=== PATIENT | male | born 1955 | race Caucasian/White ===

== ENCOUNTER 2020-06-27 14:52 | Emergency (ER) | payer OTHER, SELFPAY ==
[2020-06-27 14:59] VITALS: BP 163/76; PULSE 76; RESP 24; TEMP 37.1; O2SAT 95
[2020-06-27 15:32] LABS: Add Manual Diff / Slide Review NO; Basophils Absolute Auto 0 /uL (0-100); Basophils Percent Auto 0.8 % (0-2); Eosinophils Absolute Auto 300 /uL (0-450); Hematocrit 40.2 % (41-53); Hemoglobin 13.4 g/dL (13.5-17.5); Lymphocytes Absolute Auto 1500 /uL (1100-4500); Lymphocytes Percent Auto 25.2 % (25-40); Mean Corpuscular HGB Conc 33.3 % (30-36); Mean Corpuscular Hemoglobin 30.3 PG (26-34); Monocytes Absolute Auto 700 /uL (0-900); Monocytes Percent Auto 10.6 % (3-14); Neutrophils Absolute Auto 3600 /uL (1500-7000); Neutrophils Percent Auto 58.4 % (50-75); Platelet Count 151 X10^3/uL (150-400); Red Blood Cell Count 4.41 X10^6/uL (4.5-5.9); Red Cell Distribution Width 13.5 % (11.6-14.8); White Blood Cell Count 6.1 X10^3/uL (4.5-11.0)
[2020-06-27 15:37] LABS: Prothrombin Time 11.3 SECONDS (10.1-12.7)
[2020-06-27 15:40] LABS: PTT Partial Thromboplastin Tim 34 SECONDS (26.4-36.2)
[2020-06-27 15:42] LABS: Alanine Aminotransferase 23 IU/L (<50); Albumin 4.2 g/dL (3.5-5.0); Albumin Globulin Ratio 1.4 (1.0-2.8); Alkaline Phosphatase 71 U/L (38-126); Aspartate Aminotransferase 30 IU/L (17-59); BUN Creatinine Ratio 13.5 (6-22); Bilirubin Total 0.8 mg/dL (0.2-1.3); Blood Urea Nitrogen 17 mg/dL (9-20); Calcium 9.4 mg/dL (8.4-10.2); Carbon Dioxide 27 mmol/L (22-32); Chloride 108 mmol/L (98-107); Creatine Kinase 57 U/L (55-170); Estimated Glomerular Filt Rate 57.1 mL/min (>60); Globulin 3.1 g/dL (1.7-4.1); Glucose 108 mg/dL (80-110); HEMOLYSIS 21 (0-50); Lactate (Lactic Acid) 1.3 mmol/L (0.7-2.1); Potassium 3.9 mmol/L (3.4-5.1); Sodium 142 mmol/L (137-145); Total Protein 7.3 g/dL (6.3-8.2)
[2020-06-27 15:48] LABS: COVID19 -Nasal RAPID Negative (Negative)
--- NOTE | 2020-06-27 15:51 | DI.RAD.S_ITS ---
PROCEDURE: XR CHEST 2V INDICATIONS: dyspnea, hx of copd TECHNIQUE: 2 views of the chest were acquired. COMPARISON: None. FINDINGS: Surgical changes and devices: None. Lungs and pleura: Lungs are clear. Emphysematous change. No pleural effusions or pneumothorax. Mediastinum: Mediastinal contours are normal. Heart size is normal. Bones and chest wall: No suspicious bony abnormalities. Soft tissues appear unremarkable. IMPRESSION: COPD. No evidence acute pulmonary process. Dictated by: Juan Galvez M.D. on 06/27/2020 at 16:33 Approved by: Juan Galvez M.D. on 06/27/2020 at 16:35
[2020-06-27 15:54] LABS: NT-proBNP (BNP-Adult 18+) 386 pg/mL (<125); Troponin I < 0.012 ng/mL (0.01-0.034)
[2020-06-27 15:57] LABS: Procalcitonin < 0.05 ng/mL (<0.5)
[2020-06-27] MEDS: SODIUM CHLORIDE 0.9% 1,000 ML 125 ML IV (16:14)
[2020-06-27] MEDS: methylPREDNISolone 125 MG/2 ML VIAL IV (16:14)
[2020-06-27] MEDS: ALBUTEROL 2.5 MG/3 ML NEB (ADULT) 5 MG INH (16:17)
[2020-06-27 16:20] VITALS: PULSE 64; RESP 18; O2SAT 95
--- NOTE | 2020-06-27 17:24 | ED.SOB ---
HPI - SOB/Dyspnea <NATALIE Kaur - Last Filed: 06/28/20 00:04> General Chief Complaint: Shortness of Breath/Dyspnea Stated Complaint: SOB Time Seen by Provider: 06/27/20 15:09 Source: patient Mode of arrival: Ambulatory Limitations: no limitations History of Present Illness HPI Narrative: This is a 65-year-old male, history of former smoker, with medical history significant for COPD, CHF, hypertension presents to ED with chief complain of trouble breathing and dizziness. Patient denies chest pain, fever, chills, weight gain or leg swelling, vomiting but some nausea. Patient reports he started to have productive cough. Patient reports he had quit smoking 3 years ago had smoked 60 packs for 50 years. He was to use Proventil, Stilto, and Alvesco but he had stopped taking Alvesco about 2 months ago due to having some chest pain and blurred vision and puffy eye lids without consulting the physician. He reports after he had stopped using Alvesco, the symptoms improved. However, with his increase in short of breath he restarted Alvesco for 4 days last week then stopped again due to recurring side effects. Patient reports decreased p.o. fluid intake and feels very dehydrated. Patient also stopped using diuretics after reading many side effects including increasing phlegm and difficulty breathing. Patient is a [facility] patient and has an appointment with new field organizer next week Saturday. Related Data Previous Rx's Medication Instructions Recorded prednisone 50 mg PO DAILY 5 Days #5 tab 06/27/20 Allergies Allergy/AdvReac Type Severity Reaction Status Date / Time No Known Drug Allergies Allergy Verified 06/27/20 15:01 Review of Systems <NATALIE Kaur - Last Filed: 06/28/20 00:04> Review of Systems Narrative: General: Denies fever, chills, fatigue, malaise, sweats. HEENT: Denies sinus pain, ear pain, sore throat, difficulty swallowing, dizziness. Respiratory: See HPI Cardiovascular: Denies chest pain, palpitations, orthopnea, edema. Gastrointestinal: Denies (+) nausea, vomiting, abdominal pain, diarrhea, constipation, melena. : Denies dysuria, frequency, incontinence, hematuria, urinary retention. Musculoskeletal: Denies weakness, joint pain or bony pain. Skin: Denies rash, skin lesions, or other. Neurologic: Denies weakness, headache, numbness, change in speech, confusion, seizures, incoordination. Psychiatric: No concerning psychosocial issues. 12-point review of systems is negative except for those stated above. Exam <Daniel NATALIE Owens - Last Filed: 06/28/20 00:04> Narrative Exam Narrative: GEN: Alert, oriented x 3, thin appearing who appears to be fatigue. Head: Normal cephalic, atraumatic. No scalp or temporal tenderness, palpable mass or rash. EYES: Pupils are equal, round, and reactive to light and accommodation. Extraocular muscles are intact bilaterally. There is no subconjunctival hemorrhage, exudate and sclera non-icteric. ENT: Hearing grossly intact. Nose without bleeding, purulent discharge or deviation. Facial sinuses nontender to palpate. Mucous membrane slightly dry, no mucosal lesion. Throat without erythema, tonsillar hypertrophy or exudate. Uvula in midline, airway patent. Neck: Trachea in midline. No JVD, non-tender without lymphadenopathy. No masses or thyroid megaly. Supple, non-tender and no meningeal signs. CARDIAC: Normal regular rate and rhythm without murmurs, gallops, or rubs. No chest wall tenderness. No peripheral edema, cyanosis or pallor. Capillary refill is less than 2 seconds. RESPIRATORY: Lungs are decreased with mild wheezing in right upper lobes with prolonged expiratory exhalation. Occasional cough. No rales, or rhonchi. No stridor. Mildly increased work of breathing. ABD: Abdomen soft, nontender and non-distended. No guarding or rebound tenderness to palpate. Bowel sounds are normal in all 4 quadrants. There is no palpable masses or organomegaly. EXT: Full painless ROM of all extremities with no loss of sensation, strength, effusion or edema. SKIN: Warm, dry, pale for patient. No erythema, lesions or rash over visible areas. BACK: Nontender without deformity or crepitance. No flank tenderness. NEUROLOGICAL: Alert and oriented to place, time and person. Sensation and motor function intact bilaterally. No facial droops, dysphasia. PSYCHIATRIC: Good judgement and reason, without hallucinations, abnormal affect or abnormal behaviors during the examination. Patient is not suicidal. Initial Vital Signs Initial Vital Signs: Vital Signs Temperature 98.7 F 06/27/20 14:59 Pulse Rate 76 06/27/20 14:59 Respiratory Rate 24 06/27/20 14:59 Blood Pressure 163/76 H 06/27/20 14:59 Pulse Oximetry 95 06/27/20 14:59 <Molly Gutierrez DO - Last Filed: 07/01/20 08:31> Initial Vital Signs Initial Vital Signs: Vital Signs Temperature 98.7 F 06/27/20 14:59 Pulse Rate 76 06/27/20 14:59 Respiratory Rate 24 06/27/20 14:59 Blood Pressure 163/76 H 06/27/20 14:59 Pulse Oximetry 95 06/27/20 14:59 Scores <Daniel MarshWILFRID hernandezP - Last Filed: 06/28/20 00:04> GCS Beatty coma scale eye opening: Spontaneous Beatty coma scale verbal response: Orientated Beatty coma scale motor response: Obey commands Beatty coma scale total score: 15 qSOFA Altered Mental Status (GCS <15): No Respiratory rate greater than/equal to 22: Yes Systolic blood pressure less than or equal to 100: No qSOFA Total: 1 0-1 Not High Risk 1-3 High risk Wells' Criteria for PE Clinical signs and symptoms of DVT: No PE is #1 Dx or equally likely: No Heart rate > 100: No Immobilization at least 3 days or surg in previous 4 weeks: No History of PE or DVT: No Hemoptysis: No Malignancy w/Treatment within 6 months or palliative: No Wells' PE Score total: 0 Course <Daniel MarshNATALIE hernandez - Last Filed: 06/28/20 00:04> Orders Ordered: Discontinued Medications Albuterol (Ventolin) 5 mg INH NOW ONE Stop: 06/27/20 15:51 Last Admin: 06/27/20 16:17 Dose: 5 mg Documented by: [email or web address] Albuterol/Ipratropium (Duoneb) 3 ml INH NOW ONE Stop: 06/27/20 15:02 Last Admin: 06/27/20 15:06 Dose: Not Given Documented by: LEXI Sodium Chloride (Normal Saline 0.9%) 1,000 mls @ 125 mls/hr IV CONT BANDAR Last Infusion: 06/27/20 17:39 Dose: 0 mls/hr Documented by: Admin: 06/27/20 16:14 Dose: 125 mls/hr Documented by: BTONER Methylprednisolone (Solu-Medrol 125 Mg Vial) 125 mg IV NOW ONE Stop: 06/27/20 15:51 Last Admin: 06/27/20 16:14 Dose: 125 mg Documented by: BTONER Reevaluation(s) Reevaluation #1: Patient reports short of breath improved after neb treatment and Solu-Medrol IV. Will do ambulation trial. Time: 17:24 Reevaluation #2: Patient was able to ambulate with O2 said above 93% and mostly 96% in RA. Time: 17:47 Vital Signs Vital signs: Vital Signs - 8 hr 06/27/20 16:20 06/27/20 17:30 06/27/20 18:06 Pulse Rate 64 90 79 Respiratory Rate 18 19 20 Blood Pressure 163/96 H Pulse Oximetry 95 95 97 <Molly Gutierrez DO - Last Filed: 07/01/20 08:31> Orders Ordered: Discontinued Medications Albuterol (Ventolin) 5 mg INH NOW ONE Stop: 06/27/20 15:51 Last Admin: 06/27/20 16:17 Dose: 5 mg Documented by: CTRALICIA Albuterol/Ipratropium (Duoneb) 3 ml INH NOW ONE Stop: 06/27/20 15:02 Last Admin: 06/27/20 15:06 Dose: Not Given Documented by: LEXI Sodium Chloride (Normal Saline 0.9%) 1,000 mls @ 125 mls/hr IV CONT BANDAR Last Infusion: 06/27/20 17:39 Dose: 0 mls/hr Documented by: Admin: 06/27/20 16:14 Dose: 125 mls/hr Documented by: BTONER Methylprednisolone (Solu-Medrol 125 Mg Vial) 125 mg IV NOW ONE Stop: 06/27/20 15:51 Last Admin: 06/27/20 16:14 Dose: 125 mg Documented by: BTONER Vital Signs Vital signs: Vital Signs - 8 hr 06/27/20 16:20 06/27/20 17:30 06/27/20 18:06 Pulse Rate 64 90 79 Respiratory Rate 18 19 20 Blood Pressure 163/96 H Pulse Oximetry 95 95 97 MDM - SOB/Dyspnea <Daniel NATALIE Owens - Last Filed: 06/28/20 00:04> Differential Diagnosis Differential diagnosis: Likely acute exacerbation of chronic obstructive airways disease, congestive heart failure, community acquired pneumonia, pulmonary embolism and other (Covid, NSTEMI/STEMI, anemia) Medical Records Attestation: I reviewed the patient's medical records. Lab Data Attestation: I reviewed the patient's lab results. Result diagrams: 06/27/20 15:15 06/27/20 15:15 Labs: Lab Results 06/27/20 06/27/20 06/27/20 Range/Units 15:15 15:15 15:15 WBC 6.1 (4.5-11.0) X10^3/uL RBC 4.41 L (4.5-5.9) X10^6/uL Hgb 13.4 L (13.5-17.5) g/dL Hct 40.2 L (41-53) % MCV 91.0 (80-100) fL MCH 30.3 (26-34) PG MCHC 33.3 (30-36) % RDW 13.5 (11.6-14.8) % Plt Count 151 (150-400) X10^3/uL Neut % (Auto) 58.4 (50-75) % Lymph % (Auto) 25.2 (25-40) % Bartholomew % (Auto) 10.6 (3-14) % Eos % (Auto) 5.0 H (2-4) % Baso % (Auto) 0.8 (0-2) % Neut # (Auto) 3600 (5759-6253) /uL Lymph # (Auto) 1500 (3965-2112) /uL Bartholomew # (Auto) 700 (0-900) /uL Eos # (Auto) 300 (0-450) /uL Baso # (Auto) 0 (0-100) /uL PT 11.3 (10.1-12.7) SECONDS INR 1.0 (0.9-1.3) APTT 34 (26.4-36.2) SECONDS Sodium 142 (137-145) mmol/L Potassium 3.9 (3.4-5.1) mmol/L Chloride 108 H (98-107) mmol/L Carbon Dioxide 27 (22-32) mmol/L BUN 17 (9-20) mg/dL Creatinine 1.26 H (0.66-1.25) mg/dL Estimated GFR 57.1 L (>60) mL/min BUN/Creatinine Ratio 13.5 (6-22) Glucose 108 (80-110) mg/dL Lactate (0.7-2.1) mmol/L Calcium 9.4 (8.4-10.2) mg/dL Magnesium 2.0 (1.6-2.3) mg/dL Total Bilirubin 0.8 (0.2-1.3) mg/dL AST 30 (17-59) IU/L ALT 23 (<50) IU/L Alkaline Phosphatase 71 (38-126) U/L Total Creatine Kinase 57 (55-170) U/L CK-MB (CK-2) TNP CK-MB (CK-2) Rel Index TNP Troponin I < 0.012 (0.01-0.034) ng/mL NT-Pro-B Natriuret Pep 386 H (<125) pg/mL Total Protein 7.3 (6.3-8.2) g/dL Albumin 4.2 (3.5-5.0) g/dL Globulin 3.1 (1.7-4.1) g/dL Albumin/Globulin Ratio 1.4 (1.0-2.8) Procalcitonin (<0.5) ng/mL COVID-19 PCR (Negative) 06/27/20 06/27/20 06/27/20 Range/Units 15:15 15:15 15:25 WBC (4.5-11.0) X10^3/uL RBC (4.5-5.9) X10^6/uL Hgb (13.5-17.5) g/dL Hct (41-53) % MCV (80-100) fL MCH (26-34) PG MCHC (30-36) % RDW (11.6-14.8) % Plt Count (150-400) X10^3/uL Neut % (Auto) (50-75) % Lymph % (Auto) (25-40) % Bartholomew % (Auto) (3-14) % Eos % (Auto) (2-4) % Baso % (Auto) (0-2) % Neut # (Auto) (9130-1077) /uL Lymph # (Auto) (2138-5367) /uL Bartholomew # (Auto) (0-900) /uL Eos # (Auto) (0-450) /uL Baso # (Auto) (0-100) /uL PT (10.1-12.7) SECONDS INR (0.9-1.3) APTT (26.4-36.2) SECONDS Sodium (137-145) mmol/L Potassium (3.4-5.1) mmol/L Chloride (98-107) mmol/L Carbon Dioxide (22-32) mmol/L BUN (9-20) mg/dL Creatinine (0.66-1.25) mg/dL Estimated GFR (>60) mL/min BUN/Creatinine Ratio (6-22) Glucose (80-110) mg/dL Lactate 1.3 (0.7-2.1) mmol/L Calcium (8.4-10.2) mg/dL Magnesium (1.6-2.3) mg/dL Total Bilirubin (0.2-1.3) mg/dL AST (17-59) IU/L ALT (<50) IU/L Alkaline Phosphatase (38-126) U/L Total Creatine Kinase (55-170) U/L CK-MB (CK-2) CK-MB (CK-2) Rel Index Troponin I (0.01-0.034) ng/mL NT-Pro-B Natriuret Pep (<125) pg/mL Total Protein (6.3-8.2) g/dL Albumin (3.5-5.0) g/dL Globulin (1.7-4.1) g/dL Albumin/Globulin Ratio (1.0-2.8) Procalcitonin < 0.05 (<0.5) ng/mL COVID-19 PCR Negative (Negative) Imaging Data Chest x-ray: Radiologist's Impression: [address] [address] XRay Report Signed Patient: Erich Clements FMR#: [id number] : 3Acct:[id number] Age/Sex: 65 / MDate of Service: 06/27/20 Loc: ED Accession Number: [id number] Procedure: XR chest 2V Ordering Provider: Daniel Owens PROCEDURE: XR CHEST 2V INDICATIONS: dyspnea, hx of copd TECHNIQUE: 2 views of the chest were acquired. COMPARISON: None. FINDINGS: Surgical changes and devices: None. Lungs and pleura: Lungs are clear. Emphysematous change. No pleural effusions or pneumothorax. Mediastinum: Mediastinal contours are normal. Heart size is normal. Bones and chest wall: No suspicious bony abnormalities. Soft tissues appear unremarkable. IMPRESSION: COPD. No evidence acute pulmonary process. Dictated by: Juan Galvez M.D. on 06/27/2020 at 16:33 Approved by: Juan Galvez M.D. on 06/27/2020 at 16:35 ECG Data Attestation: I personally reviewed and interpreted this ECG as follows: Prior ECG tracings: not available for review Interpretation: Sinus rhythm rate at 66. Normal Diana ND interval 164, QRS duration 85, QT/QTC 386/[address] changes NO S1Q3T3 MDM Narrative Medical decision making narrative: This is a 65-year-old male who has past medical history significant for non oxygen dependent COPD, CHF and hypertension presents to ED with worsening dyspnea with productive cough with nausea and dizziness. Patient denies chest pain, cold sweats, recent weight gain or lower extremity edema. Physical exam appreciated decreased lung sounds with mild expiratory wheezing and right upper with prolonged expiratory exhalation. Initial o2 sat was 95% with mild tachycardia of 24/min. Patient was not tachycardic. EKG shows sinus rhythm rate at [address] changes. No S1Q3T3. Well's criteria for PE score is 0. Chest x-ray indicates COPD and no evidence of acute pulmonary process. Covid test was negative. H/H is 13.4/40.2 and unremarkable. No leukocytosis. Eosinophil was slightly elevated to 5.0. Normal coag. Cr is 1.26 with slightly decreased estimated GFR of 57.1. Cardiac enzymes was negative. ProBNP is 386. No increase in lactate of 1.3 or procalcitonin of <0.05. Patient is not in sepsis. No pneumonia per x-ray test. Patient was medicated with nebulizer treatment with albuterol and Solu-Medrol 125 mg treated as COPD exacerbation. Patient felt improved after this. He was ambulate short distance without desat and was able to keep o2 sat around 96-97%. The patient was hydrated gently in ED. Return precautions were discussed with patient and patient advised to follow-up with primary care physician and field organizer as scheduled on next Saturday or sooner. Patient discharged to home with 5 day course of prednisone. Patient should be on some sort of ICS for COPD treatment and especially when is currently on long acting bronchodilators without steroids. Patient verbalized understanding and agreement with the treatment plan. <Molly Gutierrez, DO - Last Filed: 07/01/20 08:31> Lab Data Labs: Lab Results 06/27/20 06/27/20 06/27/20 Range/Units 15:15 15:15 15:15 WBC 6.1 (4.5-11.0) X10^3/uL RBC 4.41 L (4.5-5.9) X10^6/uL Hgb 13.4 L (13.5-17.5) g/dL Hct 40.2 L (41-53) % MCV 91.0 (80-100) fL MCH 30.3 (26-34) PG MCHC 33.3 (30-36) % RDW 13.5 (11.6-14.8) % Plt Count 151 (150-400) X10^3/uL Neut % (Auto) 58.4 (50-75) % Lymph % (Auto) 25.2 (25-40) % Bartholomew % (Auto) 10.6 (3-14) % Eos % (Auto) 5.0 H (2-4) % Baso % (Auto) 0.8 (0-2) % Neut # (Auto) 3600 (8576-2777) /uL Lymph # (Auto) 1500 (4101-5616) /uL Bartholomew # (Auto) 700 (0-900) /uL Eos # (Auto) 300 (0-450) /uL Baso # (Auto) 0 (0-100) /uL PT 11.3 (10.1-12.7) SECONDS INR 1.0 (0.9-1.3) APTT 34 (26.4-36.2) SECONDS Sodium 142 (137-145) mmol/L Potassium 3.9 (3.4-5.1) mmol/L Chloride 108 H (98-107) mmol/L Carbon Dioxide 27 (22-32) mmol/L BUN 17 (9-20) mg/dL Creatinine 1.26 H (0.66-1.25) mg/dL Estimated GFR 57.1 L (>60) mL/min BUN/Creatinine Ratio 13.5 (6-22) Glucose 108 (80-110) mg/dL Lactate (0.7-2.1) mmol/L Calcium 9.4 (8.4-10.2) mg/dL Magnesium 2.0 (1.6-2.3) mg/dL Total Bilirubin 0.8 (0.2-1.3) mg/dL AST 30 (17-59) IU/L ALT 23 (<50) IU/L Alkaline Phosphatase 71 (38-126) U/L Total Creatine Kinase 57 (55-170) U/L CK-MB (CK-2) TNP CK-MB (CK-2) Rel Index TNP Troponin I < 0.012 (0.01-0.034) ng/mL NT-Pro-B Natriuret Pep 386 H (<125) pg/mL Total Protein 7.3 (6.3-8.2) g/dL Albumin 4.2 (3.5-5.0) g/dL Globulin 3.1 (1.7-4.1) g/dL Albumin/Globulin Ratio 1.4 (1.0-2.8) Procalcitonin (<0.5) ng/mL COVID-19 PCR (Negative) 06/27/20 06/27/20 06/27/20 Range/Units 15:15 15:15 15:25 WBC (4.5-11.0) X10^3/uL RBC (4.5-5.9) X10^6/uL Hgb (13.5-17.5) g/dL Hct (41-53) % MCV (80-100) fL MCH (26-34) PG MCHC (30-36) % RDW (11.6-14.8) % Plt Count (150-400) X10^3/uL Neut % (Auto) (50-75) % Lymph % (Auto) (25-40) % Bartholomew % (Auto) (3-14) % Eos % (Auto) (2-4) % Baso % (Auto) (0-2) % Neut # (Auto) (4607-8825) /uL Lymph # (Auto) (9118-3975) /uL Bartholomew # (Auto) (0-900) /uL Eos # (Auto) (0-450) /uL Baso # (Auto) (0-100) /uL PT (10.1-12.7) SECONDS INR (0.9-1.3) APTT (26.4-36.2) SECONDS Sodium (137-145) mmol/L Potassium (3.4-5.1) mmol/L Chloride (98-107) mmol/L Carbon Dioxide (22-32) mmol/L BUN (9-20) mg/dL Creatinine (0.66-1.25) mg/dL Estimated GFR (>60) mL/min BUN/Creatinine Ratio (6-22) Glucose (80-110) mg/dL Lactate 1.3 (0.7-2.1) mmol/L Calcium (8.4-10.2) mg/dL Magnesium (1.6-2.3) mg/dL Total Bilirubin (0.2-1.3) mg/dL AST (17-59) IU/L ALT (<50) IU/L Alkaline Phosphatase (38-126) U/L Total Creatine Kinase (55-170) U/L CK-MB (CK-2) CK-MB (CK-2) Rel Index Troponin I (0.01-0.034) ng/mL NT-Pro-B Natriuret Pep (<125) pg/mL Total Protein (6.3-8.2) g/dL Albumin (3.5-5.0) g/dL Globulin (1.7-4.1) g/dL Albumin/Globulin Ratio (1.0-2.8) Procalcitonin < 0.05 (<0.5) ng/mL COVID-19 PCR Negative (Negative) Discharge Plan Departure Patient Disposition: Home Clinical Impression: Acute exacerbation of chronic obstructive pulmonary disease Discharge Date/Time: 06/27/20 18:06 Instructions: DI for Chronic Obstructive Pulmonary Disease Activity Restrictions/Additional Instructions: You have been diagnosed with [COPD exacerbation. Labs and x-ray tests are assuring. Cardiac enzymes were negative. Chest x-ray does not show acute findings such as pneumonia. Negative COVID test. ProBNP is 386 and unremarkable. You have been treated with albuterol nebulizer treatment and steroid Solu-Medrol 125 mg IV with small amount of IV fluid.]. What to do: *Take your medications as directed. Please continue with steroids once a day and take this during early in days starting tomorrow. This medication has been transmitted to [facility] in [place]. *Follow up with your primary care provider in 2-3 days, call for an appointment. Please follow-up with field organizer as scheduled or sooner by calling the office. Let them know you were seen in the ED and that we asked you to be seen in follow up. *Return to ED if you have any new, worsening, or concerning symptoms, such as [chest pain, worsening difficulty breathing, fever, unable to tolerate fluids, increasing dizziness or any acute concerns]. Prescriptions: New prednisone 50 mg tablet 50 mg PO DAILY 5 Days Qty: 5 RF: 0 <Molly Gutierrez DO - Last Filed: 07/01/20 08:31> Cosign ED Attending Cosignature Attestation: I was immediately available in the department for consultation. This documentation has been reviewed and I agree with assessment and plan. Supervised by Molly Gutierrez DO
[2020-06-27 17:30] VITALS: PULSE 90; RESP 19; O2SAT 95
[2020-06-27 18:06] VITALS: BP 163/96; PULSE 79; RESP 20; O2SAT 97
== END 2020-06-27 18:06 | disposition home or self-care (01) ==
PROVIDERS: Emergency Medicine; Emergency Provider Nurse Practitioner Family
DX: J44.1 Chronic obstructive pulmonary disease with (acute) exacerbation (principal); R42 Dizziness and giddiness; I11.0 Hypertensive heart disease with heart failure; I50.9 Heart failure, unspecified
CPT/HCPCS: 36415; 71046; 80053; 82550; 83605; 83735; 83880; 84145; 84484; 85025; 85610; 85730; 87040; 87635; 93005; 94640; 96360; 96361; 96374; 99284; J2930; J7613

== ENCOUNTER 2020-11-21 17:41 | Emergency (ER) | payer OTHER, SELFPAY ==
[2020-11-21] VITALS (9 sets, daily range): BP systolic 110–137; BP diastolic 60–72; PULSE 51–88; RESP 14–66; TEMP 36.4; O2SAT 95–98; BMI 24.3
--- NOTE | 2020-11-21 18:02 | DI.RAD.S_ITS ---
PROCEDURE: XR CHEST 2V INDICATIONS: shortness of breath TECHNIQUE: 2 views of the chest were acquired. COMPARISON: [facility], , XR CHEST 2V, 06/27/2020, 16:03. FINDINGS: Surgical changes and devices: None. Lungs and pleura: Hyperinflation consistent with COPD. Lungs are clear. No pleural effusions or pneumothorax. Mediastinum: Mediastinal contours are normal. Heart size is normal. Bones and chest wall: No suspicious bony abnormalities. Soft tissues appear unremarkable. IMPRESSION: COPD. No acute cardiopulmonary disease. Dictated by: Yasmeen Rose M.D. on 11/21/2020 at 17:23 Approved by: Yasmeen Rose M.D. on 11/21/2020 at 17:25
[2020-11-21 19:00] LABS: Add Manual Diff / Slide Review NO; Basophils Absolute Auto 0 /uL (0-100); Basophils Percent Auto 0.3 % (0-2); Eosinophils Absolute Auto 0 /uL (0-450); Hematocrit 39.2 % (41-53); Hemoglobin 13.1 g/dL (13.5-17.5); Lymphocytes Absolute Auto 1400 /uL (1100-4500); Lymphocytes Percent Auto 11.9 % (25-40); Mean Corpuscular HGB Conc 33.5 % (30-36); Mean Corpuscular Hemoglobin 30.3 PG (26-34); Mean Corpuscular Volume 90.4 fL (80-100); Monocytes Absolute Auto 600 /uL (0-900); Neutrophils Absolute Auto 9800 /uL (1500-7000); Neutrophils Percent Auto 82.8 % (50-75); Platelet Count 204 X10^3/uL (150-400); Red Blood Cell Count 4.34 X10^6/uL (4.5-5.9); Red Cell Distribution Width 13.7 % (11.6-14.8); White Blood Cell Count 11.8 X10^3/uL (4.5-11.0)
[2020-11-21 19:08] LABS: Prothrombin Time 10.8 SECONDS (10.1-12.7)
[2020-11-21 19:10] LABS: PTT Partial Thromboplastin Tim 31 SECONDS (26.4-36.2)
[2020-11-21 19:15] LABS: Alanine Aminotransferase 29 IU/L (<50); Albumin 4.5 g/dL (3.5-5.0); Albumin Globulin Ratio 1.6 (1.0-2.8); Alkaline Phosphatase 66 U/L (38-126); Aspartate Aminotransferase 28 IU/L (17-59); Bilirubin Total 0.3 mg/dL (0.2-1.3); Blood Urea Nitrogen 20 mg/dL (9-20); Calcium 10.2 mg/dL (8.4-10.2); Carbon Dioxide 28 mmol/L (22-32); Chloride 107 mmol/L (98-107); Estimated Glomerular Filt Rate 53.6 mL/min (>60); Globulin 2.8 g/dL (1.7-4.1); Glucose 129 mg/dL (80-110); HEMOLYSIS 19 (0-50); Potassium 4.3 mmol/L (3.4-5.1); Sodium 141 mmol/L (137-145); Total Protein 7.3 g/dL (6.3-8.2)
[2020-11-21 19:16] LABS: Creatine Kinase 70 U/L (55-170); Lactate (Lactic Acid) 2.1 mmol/L (0.7-2.1)
[2020-11-21 19:18] LABS: D Dimer 472 ng/mL (<230)
[2020-11-21] MEDS: FUROSEMIDE 40 MG/4 ML VIAL IV (19:20)
[2020-11-21] MEDS: methylPREDNISolone 125 MG/2 ML VIAL IV (19:20)
[2020-11-21 19:28] LABS: NT-proBNP (BNP-Adult 18+) 467 pg/mL (<125); Troponin I < 0.012 ng/mL (0.01-0.034)
[2020-11-21 20:01] LABS: COVID19 - ADMIT (NP swab/PCR) Negative (Negative)
--- NOTE | 2020-11-21 20:07 | ED_ITS ---
HPI - SOB/Dyspnea General Chief Complaint: Shortness of Breath/Dyspnea Stated Complaint: SOB Time Seen by Provider: 11/21/20 17:50 Source: patient Mode of arrival: Ambulatory Limitations: no limitations History of Present Illness HPI Narrative: 65-year-old former smoker with history of COPD presents with a few days of increasing wheezing, shortness of breath and occasional cough. He states that his shortness of breath seems to worsen with exertion and improves with rest. He denies any change in his symptoms when lying flat. He denies any lower extremity pain, swelling or unexplained weight gain. He has had no chest pain, denies recent travel or history of blood clot. He has had no fever or chills and denies nausea, vomiting, dizziness, weakness or lightheadedness. MD Complaint: shortness of breath and cough Onset (ago): day(s) Severity: moderate Consistency/Duration: constant Relieving factors: rest Exacerbating factors: exertion Known history of: COPD Associated symptoms: cough and wheezing Treatment prior to arrival: bronchodilator Related Data Home oxygen amount: none Previous Rx's Medication Instructions Recorded doxycycline hyclate 100 mg PO BID #20 tab 11/21/20 Allergies Allergy/AdvReac Type Severity Reaction Status Date / Time No Known Drug Allergies Allergy Verified 11/21/20 17:59 Review of Systems Constitutional Constitutional: Denies chills, Denies fatigue, Denies fever(s), Denies frequent falls, Denies lethargy and Denies weakness Eyes Eyes: Denies change in vision, Denies eye discharge, Denies irritation and Denies loss of vision ENT Ears, Nose, Mouth, and Throat: Denies change in voice, Denies dizziness, Denies neck pain, Denies sore throat and Denies throat swelling Cardiovascular Cardiovascular: Denies chest pain, Denies irregular heart rhythm, Denies lightheadedness, Denies palpitations, Reports dyspnea, Reports dyspnea on exertion and Denies orthopnea Respiratory Respiratory: Reports cough, Reports dyspnea, Reports dyspnea on exertion and Denies wheezing Gastrointestinal Gastrointestinal: Denies abdominal pain, Denies change in bowel habits, Denies diarrhea, Denies nausea and Denies vomiting Musculoskeletal Musculoskeletal: Denies neck pain and Denies numbness Integumentary/Breasts Skin/Breast: Denies pruritus, Denies erythema, Denies rash and Denies wounds Neurologic Neurologic: Denies behavioral changes, Denies confusion, Denies dizziness, Denies frequent falls, Denies loss of vision, Denies numbness and Denies weakness Psychiatric Psychiatric: Denies anxiety, Denies behavioral changes, Denies confusion, Denies depression, Denies homicidal ideation and Denies suicidal ideation Endocrine Endocrine: Denies fatigue, Denies flushing and Denies palpitations Hematologic/Lymphatic Hematologic/Lymphatic: Denies easy bruising Allergic/Immunologic Allergic/Immunologic: Denies urticaria, Denies throat swelling and Denies wheezing Patient History Social History Smoking Status: Former smoker Smoking Status: Former smoker Substance Use Type: does not use Exam Narrative Exam Narrative: GENERAL: [65] year old patient appears stated age. Well- nourished, well-developed patient, in mild distress. No obvious or significant work of breathing HEAD: Atraumatic. Normocephalic. EYES: Pupils equal round and reactive. Extraocular motions intact. No scleral icterus. No injection or drainage. ENT: Nose without bleeding, purulent drainage. Throat without erythema, tonsillar hypertrophy or exudate. Airway patent. NECK: Trachea midline. Non tender CARDIOVASCULAR: Regular rate and rhythm without murmurs, gallops, or rubs. RESPIRATORY: Decreased breath sounds bilaterally with prolonged expiratory phase, minimal expiratory wheeze in apices with faint crackles in bilateral bases GASTROINTESTINAL: Abdomen soft, non-tender, nondistended. EXTREMITIES: No edema or joint tenderness. BACK: Nontender without deformity or crepitance. No flank tenderness. NEURO: AOx3. SKIN: No rash or erythema of visible areas Initial Vital Signs Initial Vital Signs: Vital Signs Temperature 97.5 F L 11/21/20 17:55 Pulse Rate 61 11/21/20 17:55 Respiratory Rate 16 11/21/20 17:55 Blood Pressure 113/65 11/21/20 17:55 Pulse Oximetry 95 11/21/20 17:55 Course Course Course Narrative: Patient demonstrates significant improvement with the above- stated therapies Orders Ordered: ED Orders 11/21/20 18:02 XR chest 2V Stat EKG-12 Lead Stat Measure peak expiratory flow ONCE RT Consult Eval and Treat Now 11/21/20 18:50 BNP [NT-proBNP (BNP-Adult 18+)] Stat COVID19 - ADMIT (ELECTRONIC SCALE TESTER swab/PCR) Stat Complete Blood Count AUTO DIFF Stat Comprehensive Metabolic Panel Stat Lactate (Lactic Acid) Stat Partial Thromboplastin Time Stat Prothrombin Time INR Stat Troponin & CK Cardiac Panel Stat 11/21/20 19:03 D Dimer Stat Discontinued Medications Albuterol/Ipratropium (Albuterol/Ipratropium 3 Ml Ampul) 3 ml INH NOW ONE Stop: 11/21/20 19:08 Last Admin: 11/21/20 20:25 Dose: 3 ml Documented by: CATA Doxycycline Hyclate (Doxycycline Hyclate 100 Mg Tablet) 100 mg PO NOW ONE Stop: 11/21/20 20:14 Last Admin: 11/21/20 20:30 Dose: 100 mg Documented by: CHAVO Furosemide (Furosemide 40 Mg/4 Ml Vial) 40 mg IV NOW ONE Stop: 11/21/20 19:08 Last Admin: 11/21/20 19:20 Dose: 40 mg Documented by: ZANDER Methylprednisolone (Methylprednisolone 125 Mg/2 Ml Vial) 125 mg IV NOW ONE Stop: 11/21/20 19:08 Last Admin: 11/21/20 19:20 Dose: 125 mg Documented by: ZANDER Vital Signs Vital signs: Vital Signs - 8 hr 11/21/20 18:44 11/21/20 18:48 11/21/20 19:00 Pulse Rate 85 88 61 Respiratory Rate 66 H 49 H 15 Blood Pressure 121/60 Pulse Oximetry 98 98 11/21/20 19:01 11/21/20 19:30 11/21/20 20:00 Pulse Rate 55 L 58 L 51 L Respiratory Rate 14 29 H 21 Blood Pressure 137/72 110/68 116/64 Pulse Oximetry 98 97 96 11/21/20 20:25 11/21/20 20:53 Pulse Rate 57 L 65 Respiratory Rate 17 14 Blood Pressure 121/65 Pulse Oximetry 97 97 MDM - SOB/Dyspnea Lab Data Result diagrams: 11/21/20 18:50 11/21/20 18:50 Labs: Lab Results 11/21/20 11/21/20 11/21/20 Range/Units 18:50 18:50 18:50 WBC 11.8 H (4.5-11.0) X10^3/uL RBC 4.34 L (4.5-5.9) X10^6/uL Hgb 13.1 L (13.5-17.5) g/dL Hct 39.2 L (41-53) % MCV 90.4 (80-100) fL MCH 30.3 (26-34) PG MCHC 33.5 (30-36) % RDW 13.7 (11.6-14.8) % Plt Count 204 (150-400) X10^3/uL Neut % (Auto) 82.8 H (50-75) % Lymph % (Auto) 11.9 L (25-40) % [place] % (Auto) 5.0 (3-14) % Eos % (Auto) 0.0 L (2-4) % Baso % (Auto) 0.3 (0-2) % Neut # (Auto) 9800 H (9418-4726) /uL Lymph # (Auto) 1400 (3689-6051) /uL [place] # (Auto) 600 (0-900) /uL Eos # (Auto) 0 (0-450) /uL Baso # (Auto) 0 (0-100) /uL PT (10.1-12.7) SECONDS INR (0.9-1.3) APTT (26.4-36.2) SECONDS D-Dimer (<230) ng/mL Sodium 141 (137-145) mmol/L Potassium 4.3 (3.4-5.1) mmol/L Chloride 107 (98-107) mmol/L Carbon Dioxide 28 (22-32) mmol/L BUN 20 (9-20) mg/dL Creatinine 1.33 H (0.66-1.25) mg/dL Estimated GFR 53.6 L (>60) mL/min BUN/Creatinine Ratio 15.0 (6-22) Glucose 129 H (80-110) mg/dL Lactate 2.1 (0.7-2.1) mmol/L Calcium 10.2 (8.4-10.2) mg/dL Total Bilirubin 0.3 (0.2-1.3) mg/dL AST 28 (17-59) IU/L ALT 29 (<50) IU/L Alkaline Phosphatase 66 (38-126) U/L Total Creatine Kinase (55-170) U/L CK-MB (CK-2) CK-MB (CK-2) Rel Index Troponin I (0.01-0.034) ng/mL NT-Pro-B Natriuret Pep (<125) pg/mL Total Protein 7.3 (6.3-8.2) g/dL Albumin 4.5 (3.5-5.0) g/dL Globulin 2.8 (1.7-4.1) g/dL Albumin/Globulin Ratio 1.6 (1.0-2.8) SARS-CoV-2 (PCR) (Negative) 11/21/20 11/21/20 11/21/20 Range/Units 18:50 18:50 18:50 WBC (4.5-11.0) X10^3/uL RBC (4.5-5.9) X10^6/uL Hgb (13.5-17.5) g/dL Hct (41-53) % MCV (80-100) fL MCH (26-34) PG MCHC (30-36) % RDW (11.6-14.8) % Plt Count (150-400) X10^3/uL Neut % (Auto) (50-75) % Lymph % (Auto) (25-40) % [place] % (Auto) (3-14) % Eos % (Auto) (2-4) % Baso % (Auto) (0-2) % Neut # (Auto) (2386-4041) /uL Lymph # (Auto) (1618-7611) /uL [place] # (Auto) (0-900) /uL Eos # (Auto) (0-450) /uL Baso # (Auto) (0-100) /uL PT 10.8 (10.1-12.7) SECONDS INR 1.0 (0.9-1.3) APTT 31 (26.4-36.2) SECONDS D-Dimer (<230) ng/mL Sodium (137-145) mmol/L Potassium (3.4-5.1) mmol/L Chloride (98-107) mmol/L Carbon Dioxide (22-32) mmol/L BUN (9-20) mg/dL Creatinine (0.66-1.25) mg/dL Estimated GFR (>60) mL/min BUN/Creatinine Ratio (6-22) Glucose (80-110) mg/dL Lactate (0.7-2.1) mmol/L Calcium (8.4-10.2) mg/dL Total Bilirubin (0.2-1.3) mg/dL AST (17-59) IU/L ALT (<50) IU/L Alkaline Phosphatase (38-126) U/L Total Creatine Kinase 70 (55-170) U/L CK-MB (CK-2) TNP CK-MB (CK-2) Rel Index TNP Troponin I < 0.012 (0.01-0.034) ng/mL NT-Pro-B Natriuret Pep 467 H (<125) pg/mL Total Protein (6.3-8.2) g/dL Albumin (3.5-5.0) g/dL Globulin (1.7-4.1) g/dL Albumin/Globulin Ratio (1.0-2.8) SARS-CoV-2 (PCR) Negative (Negative) 11/21/20 Range/Units 19:03 WBC (4.5-11.0) X10^3/uL RBC (4.5-5.9) X10^6/uL Hgb (13.5-17.5) g/dL Hct (41-53) % MCV (80-100) fL MCH (26-34) PG MCHC (30-36) % RDW (11.6-14.8) % Plt Count (150-400) X10^3/uL Neut % (Auto) (50-75) % Lymph % (Auto) (25-40) % [place] % (Auto) (3-14) % Eos % (Auto) (2-4) % Baso % (Auto) (0-2) % Neut # (Auto) (9167-9147) /uL Lymph # (Auto) (1988-1232) /uL [place] # (Auto) (0-900) /uL Eos # (Auto) (0-450) /uL Baso # (Auto) (0-100) /uL PT (10.1-12.7) SECONDS INR (0.9-1.3) APTT (26.4-36.2) SECONDS D-Dimer 472 H (<230) ng/mL Sodium (137-145) mmol/L Potassium (3.4-5.1) mmol/L Chloride (98-107) mmol/L Carbon Dioxide (22-32) mmol/L BUN (9-20) mg/dL Creatinine (0.66-1.25) mg/dL Estimated GFR (>60) mL/min BUN/Creatinine Ratio (6-22) Glucose (80-110) mg/dL Lactate (0.7-2.1) mmol/L Calcium (8.4-10.2) mg/dL Total Bilirubin (0.2-1.3) mg/dL AST (17-59) IU/L ALT (<50) IU/L Alkaline Phosphatase (38-126) U/L Total Creatine Kinase (55-170) U/L CK-MB (CK-2) CK-MB (CK-2) Rel Index Troponin I (0.01-0.034) ng/mL NT-Pro-B Natriuret Pep (<125) pg/mL Total Protein (6.3-8.2) g/dL Albumin (3.5-5.0) g/dL Globulin (1.7-4.1) g/dL Albumin/Globulin Ratio (1.0-2.8) SARS-CoV-2 (PCR) (Negative) MDM Narrative Medical decision making narrative: Multiple etiologies for patient's symptoms considered including: [Pulmonary embolism considered but thought unlikely given negative D-dimer when corrected for age and lack of chest pain, hypoxemia, tachycardia. Bacterial pneumonia considered but thought unlikely given lack of fever, obvious findings on imaging. Acute exacerbation of CHF considered given exertional dyspnea, faint crackles in bases with slight elevation in BNP, however no lower extremity edema, history of CHF known. Exacerbation of COPD considered most likely cause, elevation of white blood cells certainly could be related to prednisone use but also considering underlying atypical pneumonia. COVID considered but thought unlikely given negative findings or classic presentation] Patient's symptoms improved over duration of stay with above-stated therapies. Findings and discharge diagnosis discussed with patient/family followed by verbalization of understanding Return precautions discussed with patient/family whom verbalize understanding. Discharge Plan Departure Patient Disposition: Home Clinical Impression: COPD exacerbation, Atypical pneumonia Instructions: DI for Chronic Obstructive Pulmonary Disease Activity Restrictions/Additional Instructions: *You have been diagnosed with [shortness of breath due to exacerbation of COPD and likely an atypical pneumonia] *What to do: *Take medications as directed *Follow up with your primary care provider in 2-3 days, call for an appointment. Let them know you were seen in the Emergency Department and that we ask that you be seen in follow up *Return to ER if you should have any new, worsening or concerning symptoms, such as [increasing shortness of breath, chest pain, fever greater than 101 F, shaking chills or other bothersome symptoms] Prescriptions: New doxycycline hyclate 100 mg tablet 100 mg PO BID Qty: 20 RF: 0
[2020-11-21] MEDS: ALBUTEROL/IPRATROPIUM 3 ML AMPUL INH (20:25)
[2020-11-21] MEDS: DOXYCYCLINE HYCLATE 100 MG TABLET PO (20:30)
[2020-11-21 20:54] LABS: Reflexed Lactate in 2 Hours Y
== END 2020-11-21 20:55 | disposition home or self-care (01) ==
PROVIDERS: Emergency Provider Emergency Medicine
DX: J44.1 Chronic obstructive pulmonary disease with (acute) exacerbation (principal); J18.9 Pneumonia, unspecified organism
CPT/HCPCS: 36415; 71046; 80053; 82550; 83605; 83880; 84484; 85025; 85379; 85610; 85730; 87635; 93005; 94640; 96374; 96375; 99284; J1940; J2930

== ENCOUNTER 2020-11-29 15:18 | Emergency (ER) | payer OTHER, SELFPAY ==
[2020-11-29 15:30] VITALS: BP 120/72; PULSE 57; RESP 16; TEMP 36.5; O2SAT 97; BMI 25.5
== END 2020-11-29 18:08 | disposition left against medical advice (07) ==
PROVIDERS: Emergency Provider Emergency Medicine
DX: M79.601 Pain in right arm (principal)
CPT/HCPCS: 99281

== ENCOUNTER → 2024-04-24 15:11 | Outpatient (CLI) | payer OTHER, SELFPAY ==
[2024-04-25 16:30] LABS: Add Manual Diff / Slide Review NO; Basophils Absolute Auto 0 /uL (0-100); Basophils Percent Auto 0.6 % (0-2); Eosinophils Absolute Auto 100 /uL (0-450); Eosinophils Percent Auto 0.9 % (2-4); Hematocrit 39.9 % (41-53); Hemoglobin 13.2 g/dL (13.5-17.5); Lymphocytes Absolute Auto 1700 /uL (1100-4500); Lymphocytes Percent Auto 21.4 % (25-40); Mean Corpuscular HGB Conc 33.2 % (30-36); Mean Corpuscular Hemoglobin 30.8 PG (26-34); Mean Corpuscular Volume 92.8 fL (80-100); Monocytes Absolute Auto 700 /uL (0-900); Monocytes Percent Auto 8.8 % (3-14); Neutrophils Absolute Auto 5400 /uL (1500-7000); Neutrophils Percent Auto 68.3 % (50-75); Platelet Count 290 X10^3/uL (150-400); Red Blood Cell Count 4.29 X10^6/uL (4.5-5.9); Red Cell Distribution Width 14.5 % (11.6-14.8); White Blood Cell Count 7.9 X10^3/uL (4.5-11.0)
== END ==
LOC: LAB 15:13
PROVIDERS: Referring Provider Physician Assistant; Visit Provider Physician Assistant
DX: R30.0 Dysuria (principal)
CPT/HCPCS: 36415; 85025